=== PATIENT | male | born 1935 | race American Indian/Alaskan Native ===

== ENCOUNTER 2016-12-07 07:20 | Outpatient (CLI) | payer MEDICARE ==
--- NOTE | 2016-12-07 08:53 | Cat Scan Report ---
CT abdomen and pelvis without contrast: Abdominal aortic aneurysm. Transverse images are obtained from lower chest to the ischium. Comparison is made to prior exam in January 2015. Coronal and sagittal 2-D reformatted images included. There is a 3 mm discrete nodule in the right lower lung. Cardiovascular calcification present. Moderate elevation of the right hemidiaphragm with interposition of the colon. Stable small nonobstructing right renal calculus. Extensive spondylosis and dextroscoliosis of the lumbar spine. There is diffuse atherosclerosis of the abdominal aorta. There is aneurysmal dilatation of the distal aorta just proximal to the bifurcation with a maximum diameter of 3.7 cm. The length of the dilatation is approximately 4.1 cm. Compared to the patient's prior exam there is slight enlargement of the aneurysm from 3.5 cm. Impression: 1. Minimal increase size of abdominal aortic aneurysm since 2015. 2. Small right lower lobe pulmonary nodule not previously included on prior CT scans for comparison. Based on size, characteristics, and patient age followup recommended in conjunction with followup of abdominal aortic aneurysm.
== END 2016-12-07 07:21 | disposition home or self-care (01) ==
LOC: CT 07:20
PROVIDERS: ATTEND Internal Medicine Cardiovascular Disease
DX: I71.4 Abdominal aortic aneurysm, without rupture (principal); R91.1 Solitary pulmonary nodule; I70.0 Atherosclerosis of aorta; J98.6 Disorders of diaphragm; N20.0 Calculus of kidney; M47.896 Other spondylosis, lumbar region; M41.86 Other forms of scoliosis, lumbar region
CPT/HCPCS: 74150

== ENCOUNTER 2019-01-03 09:18 | Outpatient (CLI) | payer MEDICARE ==
[2019-01-03 10:32] LABS: Blood Urea Nitrogen 10 mg/dL (9-20)
--- NOTE | 2019-01-03 12:20 | Cat Scan Report ---
CTA abdomen and pelvis with contrast INDICATION : I71.4)Abdominal aortic aneurysm, without rupture. Acute generalized abdominal pain TECHNIQUE: Axial imaging performed through the abdomen and pelvis, with contrast bolus timing set to maximize opacification of the aorta. Bilateral lower extremity runoff was also performed. 3-plane M IP reformatted images were obtained. All CT scans at this location are performed using CT dose reduc tion for ALARA by means of automated exposure control. 100 mL of intravenous contrast administered. COMPARISON: None FINDINGS: Angiographic findings: There is an infrarenal abdominal aortic aneurysm measuring 3.7 cm in maximal t ransverse dimension on image #116 of series #2 and spanning a length of 5.7 cm on image #74 of series 300. There is otherwise moderate multifocal atherosclerotic disease with abdominal aorta and involvi ng the branch vessels with at least 50% stenosis seen at the origin of the celiac axis. There is no a cute hemorrhage, dissection, or other abnormality. There is ectasia of both common iliac arteries lexie suring up to 1.5 cm on the right on image 141 and 1.6 cm on the left on image 130. Non-angiographic findings: Lungs/bones: Lung bases are clear. There are degenerative changes in the spine and pelvis with no ac jodi osseous abnormality. Abdomen/pelvis: The liver, gallbladder, spleen, pancreas, adrenals, kidneys, and proximal GI tract a ppear unremarkable. Urinary bladder is indented by a mildly enlarged prostate. No gross mass identified. No pelvic free f luid or acute colonic abnormality. There is colonic diverticulosis with nothing acute. IMPRESSION: 1. 3.7 cm infrarenal abdominal aortic aneurysm without acute abnormality. 2. Additional incidental findings as above. Signer Name: Trent Hernandez MD Signed: 01/03/2019 12:16 PM Workstation Name: [id number]
== END 2019-01-03 09:19 | disposition home or self-care (01) ==
LOC: CT 09:18
PROVIDERS: ATTEND Surgery Vascular Surgery
DX: I71.4 Abdominal aortic aneurysm, without rupture (principal)
CPT/HCPCS: 36415; 74175; 82565; 84520; Q9967